=== PATIENT | female | born 1970 | race Hispanic/Latino ===

== ENCOUNTER 2018-06-05 15:54 | Inpatient (IN) | payer OTHER ==
[~2018-06-05] VITALS: Ht 170.2 cm; Wt 94.0 kg
--- OUTSIDE RECORDS SUMMARY | 2018-06-05 15:57 | XMS REPORT | Clinical Summary ---
Author Author Lalit Mezaist Organization [facility] Address Unknown Phone Unavailable Care Team Providers Care Waitstaff Captain Name Role Phone PCP Unavailable Allergies Not on File Medications Not on file Active Problems Not on file Encounters Care Team Description Date Type Specialty 01/11/2018 Clinical Corporate Wellness Support after 06/04/2017 Immunizations Name Dates Previously Given Next Due FLUCELVAX QUAD PF (0.5mL 01/11/2018 syringe) Social History Date Tobacco Use Types Packs/Day Years Used Never Assessed Sex Assigned at Date Recorded Not on file Industry Job Start Date Occupation Not on file Not on file Not on file Travel End Travel History Travel Start No recent travel history available. Last Filed Vital Signs Not on file Plan of Treatment Health Maintenance Due Date Last Done Comments CERVICAL CANCER SCREENING 1992 INFLUENZA VACCINE Completed 01/11/2018 Results Not on fileafter 06/04/2017 Advance Directives Patient has advance care planning documents on file. For more information, abelardo e contact: Lalit Briscoe [address] [place] [address]
--- OUTSIDE RECORDS SUMMARY | 2018-06-05 15:57 | XMS REPORT | Summary of Care ---
Author Author DEE HARRIS M.D. Organization Unknown Address Unknown Phone Unavailable Care Team Providers Care Nursing Education Specialist Name Role Phone DEE HARRIS M.D. 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) Status: Active Influenza vaccine needed (V04.81, Z23) Status: Active Essential (primary) hypertension (401.9, I10) Status: Active Obesity (BMI 30-39.9) (278.00, E66.9) Status: Active Encounter for dietary counseling and surveillance (V65.3, Z71.3) Status: Active Abnormal thyroid function test (794.5, R94.6) Status: Active Well female exam with routine gynecological exam (V72.31, Z01.419) Status: Active IUD contraception (V45.51, Z97.5) Status: Active Visit for screening mammogram (V76.12, Z12.31) Status: Active Bacterial vaginosis (616.10, N76.0) Status: Active Medications Name Dates Details Losartan Potassium-HCTZ 50-12.5 MG Oral Tablet TAKE 1 TABLET BY MOUTH DAILY Quantity: 30 KIMBERLY Hector, LOURICE * Start : 13-Dec-2017 Active MetroNIDAZOLE 500 MG Oral Tablet TAKE 1 TABLET TWICE DAILY * Quantity: 14 Refills: 0 GUMAROELMELGAL Hector, LOURICE * Start : 17-May-2017 Active Allergies and Adverse Reactions Name Dates Details No Known Drug Allergies (Allergy) Status: Active Past Medical History Name Dates Details History of Acute pyonephrosis (590.10, N13.6) Status: Resolved 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, 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 History of Benign essential HTN (401.1, I10) Status: Resolved History of Fever presenting with conditions classified elsewhere (780.61, R50.81) Status: Resolved History of nausea and vomiting (V12.79, Z87.898) Status: Resolved History of Scleritis (On Exam) (379.00) Status: Resolved History of tonsillitis (V12.69, Z87.09) Status: Resolved History of vaginitis (V13.29, Z87.42) Status: Resolved Procedures Procedure Dates Details History of Section Completed Immunization Name Dates Details Fluzone 9 MCG/STRAIN NAVID Lot #: [id number] on: 06-Apr-2012 Fluzone Quadrivalent 0.5 ML Intramuscular Suspension Prefilled Syringe Lot #: [id number] on: 07-Apr-2017 Family History Name Dates Details Family history of Type 2 Diabetes Mellitus Status: Active Name Dates Details Family history of Type 2 Diabetes Mellitus Status: Active Social History Name Dates Details - Status: Name Dates Details Never smoker Vital Signs Date Test Result Details No Known Vitals to report Results Date Description Value Details 12-May-20170:00 . [facility] - PAP PAP REPORT NEGATIVE 12-May-20170:00 . [facility] - HPV High Risk HPV High Risk REPORT Negative Plan of Care Name Dates Details Planned Observations Planned Goals not documented Planned Medications Losartan Potassium-HCTZ 50-12.5 MG Oral Tablet TAKE 1 TABLET BY MOUTH DAILY Ordered: 13-Dec-2017 Active Instructions Name Dates Details Instructions not documented Encounters Appointment; RAMO VAZQUEZ P.A. Encounter Diagnosis: Problem not documented On: 07-Apr-2017 11:00 Appointment; RAMO VAZQUEZ P.A. Encounter Diagnosis: Problem not documented On: 15-Apr-2017 11:00 Appointment; DEE HARRIS M.D. Encounter Diagnosis: Problem not documented On: 12-May-2017 11:20
[2018-06-05] MEDS ORDERED: KETOROLAC TROMETHAMINE 30 MG/ML VIAL IV ONE (16:01)
[2018-06-05] MEDS ORDERED: PIPER-TAZ 3.375 GM 50 ML IV ONE (16:15)
[2018-06-05] MEDS ORDERED: SODIUM CHLORIDE 0.9% 1000ML 1,000 ML IV ONE (16:15)
[2018-06-05] MEDS ORDERED: SODIUM CHLORIDE FLUSH 10 ML SYR INJ PRN (16:15)
[2018-06-05] MEDS ORDERED: DICYCLOMINE HCL 20 MG/2 ML VIAL IM ONE (16:15)
[2018-06-05] MEDS ORDERED: MORPHINE SULFATE 5 MG/ML VIAL IV ONE (16:15)
[2018-06-05] MEDS ORDERED: METOCLOPRAMIDE HCL 10 MG/2ML VIAL IV ONE (16:15)
[2018-06-05] MEDS ORDERED: MORPHINE SULFATE 2 MG/ML SYR 1ML IV PRN (16:15)
[2018-06-05] MEDS ORDERED: MORPHINE SULFATE INJ 4 MG/ML INJ 1ML IV ONE (16:15)
[2018-06-05] MEDS ORDERED: MORPHINE SULFATE INJ 4 MG/ML INJ 1ML IV PRN (16:30)
--- NOTE | 2018-06-05 16:45 | NUR ---
RECEIVED PT FROM [facility] INTO ER 4. RECEIVED REPORT FROM AKIL MCALLISTER. PT GOWNED AND PLACED ON THE MONITOR
[2018-06-05 16:46] LABS: BASOPHILS % 0.2 % (0.0-1.0); HEMATOCRIT 39.4 % (34.2-44.1); HEMOGLOBIN 12.9 g/dL (12.0-16.0); LYMPHOCYTES # (AUTO) 2.7 (1.0-3.2); LYMPHOCYTES % 16.8 % (18.0-39.1); MEAN CORPUSCULAR HEMOGLOBIN 26.8 pg (28-32); MEAN CORPUSCULAR HGB CONC 32.7 g/dL (31-35); MEAN CORPUSCULAR VOLUME 81.7 fL (81-99); MONOCYTES % 6.1 % (4.4-11.3); NEUTROPHILS # (AUTO) 12.4 (2.1-6.9); NEUTROPHILS % 76.3 % (38.7-80.0); PLATELET COUNT 290 x10e3/uL (140-360); RED BLOOD COUNT 4.82 x10e6/uL (3.6-5.1); RED CELL DISTRIBUTION WIDTH 14.6 % (11.7-14.4)
[2018-06-05 16:57] LABS: PROTHROMBIN TIME 14.1 seconds (11.9-14.5)
[2018-06-05 16:58] LABS: PARTIAL THROMBOPLASTIN TIME 33.2 seconds (23.8-35.5)
[2018-06-05] MEDS: ONDANSETRON HCL INJ 2MG/ML 2ML 2 MG/ML VIAL IV PRN (17:00)
[2018-06-05] MEDS: FAMOTIDINE 20 MG/2 ML VIAL IV SCH (17:00)
[2018-06-05 17:03] LABS: ALBUMIN 3.3 g/dL (3.5-5.0); ALBUMIN/GLOBULIN RATIO 0.6 (0.8-2.0); ANION GAP 15.9 mmol/L (8-16); CALCIUM 9.8 mg/dL (8.4-10.2); CREATININE, SERUM 1.11 mg/dL (0.57-1.11)
[2018-06-05 17:07] LABS: POTASSIUM 2.9 mmol/L (3.5-5.1)
--- NOTE | 2018-06-05 17:10 | NUR ---
BILLIE FROM LAB CALLED TO REPORT K+ 2.9. DR. SHEPHERD AWARE. PENDING FURTHER ORDERS AT THIS TIME.
--- OUTSIDE RECORDS SUMMARY | 2018-06-05 17:12 | XMS REPORT | Clinical Summary ---
Author Author Lalit Mezaist Organization [facility] Address Unknown Phone Unavailable Care Team Providers Care Marine Steward Name Role Phone PCP Unavailable Allergies Not [...] more information, abelardo e contact: Lalit Briscoe [address] [place] [address]
[2018-06-05] MEDS ORDERED: POTASSIUM CHLORIDE 20MEQ/100ML 200 ML IV ONE (17:15)
--- NOTE | 2018-06-05 17:47 | NUR ---
REPORT GIVEN TO WYATT
--- NOTE | 2018-06-05 17:49 | NUR ---
PT PAIN FREE AFTER MEDS
[2018-06-05 17:50] LABS: BILIRUBIN,URINE NEGATIVE (NEGATIVE); CLARITY,URINE SL CLOUDY (CLEAR); COLOR,URINE YELLOW (YELLOW); KETONES,URINE NEGATIVE (NEGATIVE); LEUKOCYTE ESTERASE ,URINE NEGATIVE (NEGATIVE); NITRITE,URINE NEGATIVE (NEGATIVE); PROTEIN,URINE DIPSTICK NEGATIVE (NEGATIVE); URINE UROBILINOGEN 0.2 mg/dL (0.2 - 1)
--- NOTE | 2018-06-05 18:02 | Diagnostic Imaging Report ---
EXAM: XR CHEST 1 VIEW DATE: 06/05/2018 4:01 PM INDICATION: Preoperative, pain, cholecystitis COMPARISON: None FINDINGS: Lines and Tubes: None Heart and Mediastinum: No acute cardiomediastinal findings. Lungs and Pleura: No significant pleural effusion, pneumothorax, or focal consolidation. Bones and Soft Tissues: No acute findings. IMPRESSION: 1. No acute cardiopulmonary findings. Signed by: Dr. Tristian Hung MD on 06/05/2018 5:58 PM
[2018-06-05 18:03] LABS: AMORPHOUS SEDIMENT,URINE MODERATE (FEW); BACTERIA,URINE FEW /HPF; EPITHELIAL CELLS,URINE MANY /LPF; RBC,URINE 0-5 /HPF (0-5); TRANSITIONAL EPI CELLS,URINE FEW
--- NOTE | 2018-06-05 18:15 | NUR ---
RECD PT FROM ER VIA STRETCHER,AAOX3,DENIES PAIN,IV POTASSIUM NFUSING TO RT AC 20 GAUGE ,HOB ELEVATED,CALL EDUARDO Snell N REACH
[2018-06-05 18:45] VITALS: BP 108/76
--- NOTE | 2018-06-05 19:35 | NUR ---
RECEIVED PT IN BED AOX3 ..RESPIRATIONS ARE EVEN AND UNLABORED .NO ACUTE DISTRESS NOTED .PHYSICAL ABASEMENT DONE .FAMILY AT THE BEDSIDE .CONTINUE TO MONITOR
[2018-06-05 20:00] VITALS: BP 99/57
[2018-06-05 20:24] VITALS: BP 108/76
[2018-06-05] MEDS: SODIUM CHLORIDE 0.9% 1000ML 1,000 ML IV SCH (21:31)
[2018-06-05] MEDS: PIPER-TAZ 3.375 GM 50 ML IV SCH (21:56)
[2018-06-06] VITALS (12 sets, daily range): BP systolic 95–159; BP diastolic 62–93
[2018-06-06] MEDS: SODIUM CHLORIDE 0.9% 1000ML 1,000 ML IV SCH ×3 (00:14→16:14)
[2018-06-06 05:35] LABS: BASOPHILS % 0.3 % (0.0-1.0); EOSINOPHILS # (AUTO) 0.1 (0.0-0.4); EOSINOPHILS % 0.5 % (0.0-6.0); HEMATOCRIT 33.3 % (34.2-44.1); HEMOGLOBIN 10.6 g/dL (12.0-16.0); LYMPHOCYTES # (AUTO) 1.3 (1.0-3.2); LYMPHOCYTES % 12.2 % (18.0-39.1); MEAN CORPUSCULAR HEMOGLOBIN 26.2 pg (28-32); MEAN CORPUSCULAR HGB CONC 31.8 g/dL (31-35); MEAN CORPUSCULAR VOLUME 82.2 fL (81-99); MONOCYTES # (AUTO) 0.8 (0.2-0.8); MONOCYTES % 7.5 % (4.4-11.3); NEUTROPHILS # (AUTO) 8.1 (2.1-6.9); NEUTROPHILS % 78.9 % (38.7-80.0); PLATELET COUNT 215 x10e3/uL (140-360); RED BLOOD COUNT 4.05 x10e6/uL (3.6-5.1); RED CELL DISTRIBUTION WIDTH 14.6 % (11.7-14.4)
[2018-06-06 05:46] LABS: ALANINE AMINOTRANSFERASE 16 IU/L (0-55); ALBUMIN 2.5 g/dL (3.5-5.0); ALBUMIN/GLOBULIN RATIO 0.6 (0.8-2.0); ALKALINE PHOSPHATASE 74 IU/L (40-150); ANION GAP 12.5 mmol/L (8-16); BLOOD UREA NITROGEN 23 mg/dL (7-26); BUN/CREATININE RATIO 24 (6-25); CALCIUM 8.5 mg/dL (8.4-10.2); CARBON DIOXIDE 23 mmol/L (22-29); CHLORIDE 102 mmol/L (98-107); CREATININE, SERUM 0.94 mg/dL (0.57-1.11); EST GLOMERULAR FILTRATION RATE > 60 ML/MIN (60-); GLUCOSE 81 mg/dL (74-118); LIPASE 11 U/L (8-78); POTASSIUM 3.5 mmol/L (3.5-5.1); SODIUM 134 mmol/L (136-145)
[2018-06-06] MEDS: PIPER-TAZ 3.375 GM 50 ML IV SCH ×3 (06:06→21:45)
--- NOTE | 2018-06-06 06:41 | NUR ---
PT RESTING ,DENIES PAIN .PT IS NPO.FAMILY AT THE BEDSIDE .NO ACUTE DISTRESS NOTED .CONTINUE TO MONITOR
--- NOTE | 2018-06-06 07:10 | NUR ---
REPORT GIVEN TO THE ONCOMING NURSE
--- NOTE | 2018-06-06 07:30 | NUR ---
PT IN BED RESTING NO DISTRESS NOTED,PAIN LEVEL 3
[2018-06-06] MEDS: ONDANSETRON HCL INJ 2MG/ML 2ML 2 MG/ML VIAL IV PRN (08:50)
[2018-06-06] MEDS: FAMOTIDINE 20 MG/2 ML VIAL IV SCH (09:00)
[2018-06-06] MEDS ORDERED: BUPIVACAINE 0.25%/EPI 30ML SDV INJ ONE (11:38)
--- NOTE | 2018-06-06 11:43 | NUR ---
PT TRANSPORTED TO OR VIA BED
[2018-06-06] MEDS ORDERED: PIPER-TAZ 3.375 GM 50 ML ONE (12:43)
[2018-06-06] MEDS ORDERED: NEOSTIGMINE 5 MG/5ML SYR ONE (14:39)
[2018-06-06] MEDS ORDERED: LIDOCAINE HCL 2% LOCAL INJ 5 ML SDV VIAL INJ ONE (14:39)
[2018-06-06] MEDS ORDERED: GLYCOPYRROLATE INJ 1MG/ 5 ML SYR ONE (14:39)
[2018-06-06] MEDS ORDERED: DEXAMETHASONE SOD PHOS INJ 4 MG/ML VIAL ONE (14:39)
[2018-06-06] MEDS ORDERED: SEVOFLURANE INHAL SOLN 250 ML PEN BTL ONE (14:39)
[2018-06-06] MEDS ORDERED: ROCURONIUM BROMIDE 10 MG/ML 5ML VIAL ONE (14:39)
[2018-06-06] MEDS ORDERED: ONDANSETRON HCL INJ 2MG/ML 2ML 2 MG/ML VIAL ONE (14:39)
[2018-06-06] MEDS ORDERED: PROPOFOL IV EMULSION 10 MG/ML 20 ML VIAL ONE (14:39)
[2018-06-06] MEDS ORDERED: ACETAMINOPHEN 1000 MG/100 ML IV PRN (15:30)
[2018-06-06] MEDS: PANTOPRAZOLE 40 MG 10ML VIAL IV SCH (15:30)
--- NOTE | 2018-06-06 15:40 | NUR ---
Visit made by the Spiritual Care Department Pastoral Visitor, Vivi Fernandez. Pt out of room and no family at bedside. A card was left at the bedside to indicate a missed visit from a member of the Spiritual Care team and to inform the pt and family of the availability of a Noise Tester 24 hours a day/7 days a week. A procurement forester will follow up as able. LENA SIDHU Noise Tester Spiritual Care Department O: [phone] Pager: [phone] ([phone] number calling from)
--- NOTE | 2018-06-06 16:31 | Operative Report ---
DATE OF PROCEDURE: June 06, 2018 PREOPERATIVE DIAGNOSES 1. Acute cholecystitis. 2. Cholelithiasis. 3. Gallbladder hydrops. 4. Sepsis. POSTOPERATIVE DIAGNOSES 1. Acute cholecystitis. 2. Cholelithiasis. 3. Gallbladder hydrops. 4. Sepsis. OPERATION PERFORMED: Laparoscopic cholecystectomy. OUTBOUND SUPERVISOR: Dr. Shaun Woo ANESTHESIA: General endotracheal. COMPLICATIONS: None. ESTIMATED BLOOD LOSS: 100 mL. DESCRIPTION OF PROCEDURE: With the patient lying in bed in the supine position, under good general endotracheal anesthesia, the abdomen was prepped with Betadine solution and draped in the usual manner. A Veress needle was introduced into the umbilicus, and pneumoperitoneum was established without any difficulty. An 11-mm trocar was placed in the umbilicus, and a 10-mm video laparoscope was placed into the intraabdominal cavity. Under direct vision, three 5-mm trocars were placed in the right upper quadrant and another 5-mm trocar was placed in the left upper abdomen. Video laparoscopy at this point revealed the gallbladder to be covered up with adhesions. 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 It extended all the way from the right lobe of the liver all the way to the lateral aspect of the left lobe of the liver, stretching across the entire left lobe of the liver. The gallbladder was thick-walled and inflamed. There was omentum covering up the gallbladder on the right side with the duodenum and stomach and colon stuck to it. The liver itself appeared to be within normal limits. Once the omentum was removed, we were able to tell that there was a tremendous amount of inflammatory reaction. There was a large stone at the neck of the gallbladder. The peritoneum overlying the neck of the gallbladder was then opened, and it took quite a bit of dissection to be able to figure out where the cystic duct was present and where the cystic artery was present. We actually had to dissect the lower half of the gallbladder in order to be able to follow it down to the area where the cystic duct was. The cystic duct was then from the cystic artery and was followed down to the junction with the common duct. The cystic duct was then controlled with clips and also an Endo loop and divided. The cystic artery was similarly divided with clips. The gallbladder was then slowly and carefully taken off the liver bed, first the right lobe of the liver and then the left lobe of the liver. There was a lot of inflammatory reaction all along the liver bed both on the right and left lobe of the liver. The gallbladder was slowly and carefully taken off, and hemostasis was ascertained. The gallbladder was then placed in a pouch and removed through the umbilicus after enlarging the umbilical incision to allow for passage of the very inflamed and distended gallbladder. Video laparoscopy was then again carried out. The whole area was thoroughly irrigated. Hemostasis was ascertained. Some Surgicel was left in the liver bed on the left lobe of the liver, and a 10 flat Ángel-Roberson drain was left in the hepatorenal fossa on the right side. The whole area was inspected for bleeding, and there was none. The pneumoperitoneum was evacuated, and all the trocars were removed under direct vision. The midline fascia at the umbilicus was then closed with 3 [id number] of #0 Vicryl. All layers were infiltrated on the way out with a solution of 1/4 percent Marcaine. Subcutaneous tissue was approximated with 3-0 Vicryl, and the skin was closed with 5-0 Vicryl and kali for the umbilical incision. Dressings were applied. The sponge, lap and needle count was correct. Patient tolerated the procedure well and returned to the recovery room in stable condition. Job#: [id number]
--- NOTE | 2018-06-06 17:00 | NUR ---
RECD PT FROM OR VIA BED AAOX3,BANDAIDS X4 ,RICKY DRAIN TO RT SIDE,PAIN LEVEL 3,O2 2L NC APPLIED
[2018-06-06] MEDS: METRONIDAZOLE 500MG/NS 100ML 100 ML IV SCH ×2 (18:00→23:34)
[2018-06-06] MEDS ORDERED: MIDAZOLAM HCL 2 MG/2 ML VIAL ONE (18:36)
[2018-06-06] MEDS ORDERED: FENTANYL CITRATE/PF 100MCG/2 ML INJ ONE (18:36)
--- NOTE | 2018-06-06 19:39 | NUR ---
RECEIVED PT WALKING IN THE ROOM .NO ACUTE DISTRESS NOTED DRESSING AT THE PERITONEAL CATHETER INTACT .CALL LIGHT WITH IN REACH .CONTINUE TO MONITOR Addendum: 06/06/18 at 1943 by Claudette Peña RN WRONG PT
[2018-06-06] MEDS: HYDROMORPHONE 2MG/ML 2 MG/ML ML IV PRN (20:22)
[2018-06-07] VITALS (8 sets, daily range): BP systolic 103–132; BP diastolic 62–71
[2018-06-07] MEDS: SODIUM CHLORIDE 0.9% 1000ML 1,000 ML IV SCH ×3 (00:14→16:05)
[2018-06-07] MEDS: HYDROMORPHONE 2MG/ML 2 MG/ML ML IV PRN ×4 (04:04→22:35)
[2018-06-07] MEDS: PIPER-TAZ 3.375 GM 50 ML IV SCH ×3 (05:09→22:12)
[2018-06-07] MEDS: METRONIDAZOLE 500MG/NS 100ML 100 ML IV SCH ×3 (05:52→17:27)
[2018-06-07 06:30] LABS: BASOPHILS % 0.1 % (0.0-1.0); HEMATOCRIT 31.4 % (34.2-44.1); HEMOGLOBIN 9.9 g/dL (12.0-16.0); LYMPHOCYTES # (AUTO) 1.2 (1.0-3.2); LYMPHOCYTES % 14.1 % (18.0-39.1); MEAN CORPUSCULAR HEMOGLOBIN 26.2 pg (28-32); MEAN CORPUSCULAR HGB CONC 31.5 g/dL (31-35); MEAN CORPUSCULAR VOLUME 83.1 fL (81-99); MONOCYTES # (AUTO) 0.7 (0.2-0.8); MONOCYTES % 8.3 % (4.4-11.3); NEUTROPHILS # (AUTO) 6.3 (2.1-6.9); PLATELET COUNT 245 x10e3/uL (140-360); RED BLOOD COUNT 3.78 x10e6/uL (3.6-5.1); RED CELL DISTRIBUTION WIDTH 14.6 % (11.7-14.4)
--- NOTE | 2018-06-07 06:50 | NUR ---
rounded with night supervisor nurse, patient aware of change. Patient in no distress and call ambriz within reach.
[2018-06-07 06:56] LABS: ALANINE AMINOTRANSFERASE 40 IU/L (0-55); ALBUMIN 2.2 g/dL (3.5-5.0); ALBUMIN/GLOBULIN RATIO 0.5 (0.8-2.0); ALKALINE PHOSPHATASE 70 IU/L (40-150); ANION GAP 11.5 mmol/L (8-16); BLOOD UREA NITROGEN 13 mg/dL (7-26); BUN/CREATININE RATIO 19 (6-25); CALCIUM 8.4 mg/dL (8.4-10.2); CARBON DIOXIDE 22 mmol/L (22-29); CHLORIDE 108 mmol/L (98-107); CREATININE, SERUM 0.68 mg/dL (0.57-1.11); EST GLOMERULAR FILTRATION RATE > 60 ML/MIN (60-); GLUCOSE 91 mg/dL (74-118); POTASSIUM 3.5 mmol/L (3.5-5.1); SODIUM 138 mmol/L (136-145)
[2018-06-07] MEDS: PANTOPRAZOLE 40 MG 10ML VIAL IV SCH (15:20)
--- NOTE | 2018-06-07 19:00 | NUR ---
rounded with biomass production manager nurse, patient aware of change and in no distress. Call ambriz within reach and bed in lowest position.
--- NOTE | 2018-06-07 19:05 | NUR ---
Report received and walking rounds complete. Pt resting in bed and in no apparent distress. All safety measures ensured.
[2018-06-07] MEDS: ONDANSETRON HCL INJ 2MG/ML 2ML 2 MG/ML VIAL IV PRN (22:35)
[2018-06-08] VITALS (7 sets, daily range): BP systolic 100–118; BP diastolic 58–82
[2018-06-08] MEDS: METRONIDAZOLE 500MG/NS 100ML 100 ML IV SCH ×4 (00:21→17:31)
[2018-06-08] MEDS: SODIUM CHLORIDE 0.9% 1000ML 1,000 ML IV SCH ×2 (00:58→10:51)
--- NOTE | 2018-06-08 05:13 | NUR ---
Pt has slight temp of 100.0. Pt asymptomatic with no complaints of feeling hot, faint, or dizzy. Covers removed from bed and temp adjusted down. Will continue to monitor pt and recheck temp.
[2018-06-08] MEDS: HYDROMORPHONE 2MG/ML 2 MG/ML ML IV PRN ×4 (05:25→20:22)
[2018-06-08] MEDS: ONDANSETRON HCL INJ 2MG/ML 2ML 2 MG/ML VIAL IV PRN (05:26)
[2018-06-08 05:43] LABS: BASOPHILS % 0.2 % (0.0-1.0); EOSINOPHILS % 0.4 % (0.0-6.0); HEMATOCRIT 27.8 % (34.2-44.1); HEMOGLOBIN 8.9 g/dL (12.0-16.0); LYMPHOCYTES # (AUTO) 1.4 (1.0-3.2); MEAN CORPUSCULAR HEMOGLOBIN 26.5 pg (28-32); MEAN CORPUSCULAR VOLUME 82.7 fL (81-99); MONOCYTES # (AUTO) 0.9 (0.2-0.8); MONOCYTES % 10.3 % (4.4-11.3); NEUTROPHILS # (AUTO) 5.9 (2.1-6.9); NEUTROPHILS % 71.6 % (38.7-80.0); PLATELET COUNT 244 x10e3/uL (140-360); RED BLOOD COUNT 3.36 x10e6/uL (3.6-5.1); RED CELL DISTRIBUTION WIDTH 14.6 % (11.7-14.4)
[2018-06-08 06:05] LABS: ALANINE AMINOTRANSFERASE 28 IU/L (0-55); ALBUMIN 2.1 g/dL (3.5-5.0); ALBUMIN/GLOBULIN RATIO 0.6 (0.8-2.0); ALKALINE PHOSPHATASE 61 IU/L (40-150); ANION GAP 11.1 mmol/L (8-16); BLOOD UREA NITROGEN 8 mg/dL (7-26); BUN/CREATININE RATIO 12 (6-25); CALCIUM 7.8 mg/dL (8.4-10.2); CARBON DIOXIDE 21 mmol/L (22-29); CHLORIDE 106 mmol/L (98-107); CREATININE, SERUM 0.66 mg/dL (0.57-1.11); EST GLOMERULAR FILTRATION RATE > 60 ML/MIN (60-); GLUCOSE 124 mg/dL (74-118); POTASSIUM 3.1 mmol/L (3.5-5.1); SODIUM 135 mmol/L (136-145)
--- NOTE | 2018-06-08 06:31 | NUR ---
Repeat temp 98.6
--- NOTE | 2018-06-08 06:45 | NUR ---
rounded with slot shift supervisor nurse, patient aware of change and in no distress. call ambriz within reach and bed in lowest position.
--- NOTE | 2018-06-08 07:03 | NUR ---
Report given to day shift nurse and walking rounds complete.
[2018-06-08] MEDS ORDERED: POTASSIUM CHLORIDE 20 MEQ TAB CR PO NR (12:00)
--- NOTE | 2018-06-08 16:05 | NUR ---
CASE MANAGEMENT INITIAL ASSESSMENT Advanced Practice Provider to bedside to discuss plan of care with patient/family. CM/SW role and care transitions discussed. Anticipated discharge plan discussed along with duration of care. CM/SW discussed patients right to make decisions in care. CM/SW work hours given. Patient lives: AND 2 CHILDREN Admit/Transfer: ER Hospital/ER visits since last admit:NONE POA/Emergency contact: DR ROCHA Current/Previous Home Health: NONE PCP/Follow-up Care: SURGEON F/U Current/Previous DME: NONE Medications (referring to index hospitalization or the first time you were in the hospital) a. Were changes made in your medications when you were in the hospital on [date of index hospitalization]? N/A Note: If no or not sure, please skip to question d b. Did you understand the changes? Yes No Explain: c. Were you able to obtain your new medications right away? Yes No n/a SNF only Explain: d. Were you able to take your medications like the doctor wanted you to? Yes No Explain: e. Did the hospital give you an accurate, easy to understand list of medications when you left? 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 Name and number was also written on the patients whiteboard. Patient verbalized understanding of discussion. CM will follow-up with ongoing discharge and transition of care needs.
[2018-06-08] MEDS: PANTOPRAZOLE 40 MG 10ML VIAL IV SCH (16:20)
--- NOTE | 2018-06-08 18:50 | NUR ---
rounded with slot shift manager nurse, patient aware of change. Patient in no distress and call ambriz within reach.
[2018-06-08] MEDS ORDERED: HYDROCODONE/APAP 7.5MG-325MG 1 EA TAB PO PRN (19:00)
--- NOTE | 2018-06-08 19:38 | NUR ---
RECEIVED PT IN BED AOX3 .C/O PAIN BUT PT REFUSED TO TAKE THE MEDICINE NOW. DRESSING WITH DRAINAGE.FAMILY AT THE BEDSIDE .CALL LIGHT WITH IN REACH .CONTINUE TO MONITOR .
[2018-06-09] VITALS (7 sets, daily range): BP systolic 115–136; BP diastolic 73–96
[2018-06-09] MEDS: METRONIDAZOLE 500MG/NS 100ML 100 ML IV SCH ×3 (00:21→12:00)
--- NOTE | 2018-06-09 05:51 | NUR ---
PT DENIES PAIN .CALL LIGHT WITH IN REACH .FAMILY AT THE BEDSIDE CONTINUE TO MONITOR
--- NOTE | 2018-06-09 07:06 | NUR ---
REPORT GIVEN TO THE ONCOMING NURSE
[2018-06-09] MEDS: SODIUM CHLORIDE 0.9% 1000ML 1,000 ML IV SCH (07:15)
--- NOTE | 2018-06-09 07:30 | NUR ---
PT UP IN BED, IV SITE SWOLLEN,DCD,ELEVATED ARM ON PILLOW
[2018-06-09] MEDS ORDERED: ONDANSETRON HCL 4 MG ORAL DISINTEGRATING TAB PO PRN (11:00)
--- NOTE | 2018-06-09 17:25 | NUR ---
pt discharged home ,prescriptions and instructions given copy on chart,transported to auto via w/c
[2018-06-09] MEDS ORDERED: TYLENOL WITH C1 EACH PO (18:00)
[2018-06-09] MEDS ORDERED: LEVAQUIN500 MG PO (18:00)
== END 2018-06-09 18:25 | disposition home or self-care (01) | DRG 854 ==
LOC: ER 15:54 → ERHOLD 17:09 → MED/SURG3 18:05
PROVIDERS: ADMIT Surgery; ATTEND Surgery
PROC: 0F9900Z Drainage of Common Bile Duct with Drainage Device, Open Approach (ICD-10-PCS; 2018-06-06)
PROC: 0FJ44ZZ Inspection of Gallbladder, Percutaneous Endoscopic Approach (ICD-10-PCS; 2018-06-06)
PROC: 0FT40ZZ Resection of Gallbladder, Open Approach (ICD-10-PCS; principal; 2018-06-06 12:20)
DX: A41.9 Sepsis, unspecified organism (principal); K82.1 Hydrops of gallbladder; Q44.7 Other congenital malformations of liver; K80.00 Calculus of gallbladder with acute cholecystitis without obstruction; K82.8 Other specified diseases of gallbladder
CPT/HCPCS: 36415; 71045; 80053; 81001; 83690; 84702; 85025; 85610; 85730; 88304; 96360; 96361; 99284; C1766; J0500; J1100; J1885; J2001; J2250; J2270; J2405; J2543; J2765; J3480; J7030